=== PATIENT | female | born 1950 | race Caucasian/White ===

== ENCOUNTER 2019-10-04 09:00 | Observation (INO) | payer MEDICARE ==
[~2019-10-04] VITALS: Ht 165.1 cm; Wt 71.0 kg
[~2019-10-04 09:00] MED LIST: ASPI81TA45 PO; BENA20TA54 PO; CLOP75TA52 PO; DOCU100C33 PO; HYDR25TA6 PO; METO25TA35 PO; OXYC-302 PO; SIMV20TA19 PO
[2019-10-04] MEDS: SODIUM CHLORIDE 0.9% 1,000 ML IV SCH ×2 (09:18→16:11)
[2019-10-04 09:21] VITALS: BP 123/71
[2019-10-04] MEDS ORDERED: RIVA15TA PO (09:40)
[2019-10-04] MEDS ORDERED: METO50TA82 PO (09:42)
[2019-10-04] MEDS ORDERED: BENA40TA3 PO (09:43)
[2019-10-04] MEDS ORDERED: HYDR-3285 PO (09:46)
[2019-10-04] MEDS ORDERED: CHOL10003 PO (09:48)
[2019-10-04 10:02] LABS: BASOPHILS # (AUTO) 0.04 x10^3/uL (0-0.1); BASOPHILS % (AUTO) 1 % (0-1); EOSINOPHILS # (AUTO) 0.15 x10^3/uL (0-0.4); EOSINOPHILS % (AUTO) 3 % (1-7); LYMPHOCYTES # (AUTO) 1.47 x10^3/uL (1-3.4); LYMPHOCYTES % (AUTO) 25 % (22-44); MD NO; MEAN CORPUSCULAR HEMOGLOBIN 32.4 pg (27.0-34.8); MEAN CORPUSCULAR HGB CONC 33.3 g/dL (32.4-35.8); MEAN CORPUSCULAR VOLUME 97.2 fL (80-100); MEAN PLATELET VOLUME 7.3 fL (7.4-10.4); MONOCYTES # (AUTO) 0.49 x10^3/uL (0.2-0.8); MONOCYTES % (AUTO) 8 % (2-9); NEUTROPHILS # (AUTO) 3.73 x10^3/uL (1.8-6.8); NEUTROPHILS % (AUTO) 63 % (42-75); PLATELET COUNT 374 x10^3/uL (130-400); RED BLOOD COUNT 3.98 x10^6/uL (3.82-5.3)
[2019-10-04 10:07] LABS: ANION GAP 8 mmol/L (5-15); CALCIUM 8.6 mg/dL (8.5-10.1); CHLORIDE 99 mmol/L (98-107); CREATININE 0.83 mg/dL (0.55-1.02)
[2019-10-04] MEDS ORDERED: MIDAZOLAM 1 MG/ML, 5ML ONE (10:51)
[2019-10-04] MEDS ORDERED: FENTANYL PF 100 MCG/2ML ONE (10:51)
[2019-10-04] MEDS ORDERED: VANCOMYCIN 500 MG ONE (10:51)
[2019-10-04] MEDS ORDERED: LIDOCAINE 2%, 20ML ONE ×2 (10:52→11:53)
[2019-10-04] MEDS ORDERED: VANCOMYCIN PMX 1GM/200ML 200 ML ONE (10:52)
[2019-10-04] MEDS ORDERED: ACETAMINOPHEN 325 MG TABLET PO PRN (13:00)
[2019-10-04] MEDS ORDERED: Hold all anticoagulants for 24 hours (including Lovenox and Heparin) MC PRN (13:00)
[2019-10-04] MEDS ORDERED: HYDROcodone/APAP 5/325 TABLET PO PRN (13:00)
[2019-10-04 15:09] VITALS: BP 157/89
[2019-10-04 18:52] VITALS: BP 146/83
[2019-10-04] MEDS: SODIUM CHLORIDE FLUSH 10ML SYR IVF SCH (20:47)
[2019-10-04] MEDS: METOPROLOL TARTRATE 50 MG TAB PO SCH (20:47)
[2019-10-04] MEDS ORDERED: SIMVASTATIN 20 MG TABLET PO SCH (21:00)
[2019-10-05 00:47] VITALS: BP 118/77
[2019-10-05] MEDS: SODIUM CHLORIDE 0.9% 1,000 ML IV SCH (00:59)
[2019-10-05 07:17] VITALS: BP 137/82
[2019-10-05] MEDS: SODIUM CHLORIDE FLUSH 10ML SYR IVF SCH (09:00)
[2019-10-05] MEDS: METOPROLOL TARTRATE 50 MG TAB PO SCH (09:00)
[2019-10-05] MEDS ORDERED: BENAZEPRIL 20 MG TABLET PO SCH (09:00)
[2019-10-05] MEDS ORDERED: ACET325T26 PO (09:28)
== END 2019-10-05 10:35 | disposition home or self-care (01) ==
LOC: CACL 09:00 → 5SO 12:39 → DCLOUNGE 10-05 10:21
PROVIDERS: ADMIT Internal Medicine Clinical Cardiac Electrophysiology; ATTEND Internal Medicine Clinical Cardiac Electrophysiology
DX: R55 Syncope and collapse (principal); I48.91 Unspecified atrial fibrillation; I10 Essential (primary) hypertension; E78.5 Hyperlipidemia, unspecified; I25.10 Atherosclerotic heart disease of native coronary artery without angina pectoris; Z95.1 Presence of aortocoronary bypass graft; Z87.891 Personal history of nicotine dependence; Z88.0 Allergy status to penicillin; Z79.899 Other long term (current) drug therapy
CPT/HCPCS: 33208; 36415; 71045; 71046; 80048; 85025; 99156; 99157; C1769; C1779; C1785; C1892; C1894; G0378; J2250; J3010; J3370; J3490